=== PATIENT | male | born 1935 | race Caucasian/White ===

== ENCOUNTER 2016-12-17 11:19 | Day surgery (SDC) | payer MEDICARE, OTHER ==
[~2016-12-17 11:19] MED LIST: Acetaminophen TAB* 325 MG PO PRN; Buffered Lidocaine 0.9% SYRIN* 5 ML/SYR SYRINGE INTRADERM ONE
[2016-12-17] MEDS ORDERED: Cyclopentolate 1% OPTH.SOL* 2 ML BTL ONE (12:42)
[2016-12-17] MEDS ORDERED: Povidone Iodine 5% OPTH* 30 ML BTL ONE (12:42)
[2016-12-17] MEDS ORDERED: Lidocaine 1% MPF* 2 ML VIAL ONE (12:42)
[2016-12-17] MEDS ORDERED: Buffered Lidocaine 0.9% SYRIN* 5 ML/SYR SYRINGE ONE (12:42)
[2016-12-17] MEDS ORDERED: Phenylephrine 2.5% OPTH.SOL* 2 ML BTL ONE (12:42)
[2016-12-17] MEDS ORDERED: Neomycin/Polymy/Dex OPTH.SUSP* MAXITROL 0.1% 5 ML ONE (12:42)
[2016-12-17] MEDS ORDERED: Proparacaine 0.5% OPHTH.SOL* 15 ML BTL ONE (12:42)
[2016-12-17] MEDS ORDERED: acetaZOLAMIDE TAB* 250 MG ONE (12:42)
[2016-12-17] MEDS ORDERED: Ketorolac 0.5% OPHTH (NF) 0.5 % 5 ML BTL ONE (12:42)
[2016-12-17] MEDS ORDERED: Midazolam* 1 MG/ML 2 ML VIAL (2 MG) ONE (13:46)
[2016-12-17 15:02] VITALS: BP 139/71
--- NOTE | 2016-12-17 15:17 | OP ---
DATE OF OPERATION: 12/17/2016 - [facility] DATE OF : 1935. SURGEON: Yahir Balderas M.D. PREOPERATIVE DIAGNOSIS: Cataract right eye. POSTOPERATIVE DIAGNOSIS: Cataract right eye. OPERATIVE PROCEDURE: Phacoemulsification right eye with IOL. DESCRIPTION OF PROCEDURE: The patient was brought to the operating room after being given 1/2% Alcaine with epinephrine drops in the preoperative area. The eye was prepped and draped in the usual sterile fashion. Sterile drape and eyelid speculum were placed. Again, topical 1/2% Alcaine with epinephrine was given. A paracentesis incision was made at the 9 o'clock position with the No.75 blade. Clear cornea incision 2.2 x 2.2-mm was created at the 12 o'clock position starting at the anterior limbus using the 2.2-mm keratome. The anterior chamber was irrigated with 0.4 mL of 1% non-preservative intracameral lidocaine and filled with DisCoVisc. A capsulorrhexis was completed using the cystotome and the Utrata forceps. Hydrodissection was performed with balanced salt solution. The lens nucleus was removed with the Phacoemulsification handpiece without incident. Cortex was removed with the irrigation-aspiration handpiece. The capsular bag was re-inflated using DisCoVisc and an [id number] implant was inserted with the shooter. The irrigation-aspiration handpiece was used to remove all residual DisCoVisc. The eye was refilled with balanced salt solution and the wound checked and found to be watertight. Topical Maxitrol drops were given. [id number]/[facility] #: [id number] [facility]
== END 2016-12-17 14:59 | disposition home or self-care (01) ==
LOC: OREAST 11:19
PROVIDERS: ATTEND Specialist
DX: H25.811 Combined forms of age-related cataract, right eye (principal); H04.123 Dry eye syndrome of bilateral lacrimal glands; E11.65 Type 2 diabetes mellitus with hyperglycemia; I49.9 Cardiac arrhythmia, unspecified; N18.2 Chronic kidney disease, stage 2 (mild); Z87.891 Personal history of nicotine dependence
CPT/HCPCS: A9270-GY; J2250; V2632

== ENCOUNTER 2016-12-24 06:39 | Day surgery (SDC) | payer MEDICARE, OTHER ==
[2016-12-24] MEDS ORDERED: Midazolam* 1 MG/ML 2 ML VIAL (2 MG) ONE (07:36)
[2016-12-24] MEDS ORDERED: Povidone Iodine 5% OPTH* 30 ML BTL ONE (07:59)
[2016-12-24] MEDS ORDERED: Cyclopentolate 1% OPTH.SOL* 2 ML BTL ONE (07:59)
[2016-12-24] MEDS ORDERED: Neomycin/Polymy/Dex OPTH.SUSP* MAXITROL 0.1% 5 ML ONE (07:59)
[2016-12-24] MEDS ORDERED: Buffered Lidocaine 0.9% SYRIN* 5 ML/SYR SYRINGE ONE (07:59)
[2016-12-24] MEDS ORDERED: Lidocaine 1% MPF* 2 ML VIAL ONE (07:59)
[2016-12-24] MEDS ORDERED: Proparacaine 0.5% OPHTH.SOL* 15 ML BTL ONE (07:59)
[2016-12-24] MEDS ORDERED: Phenylephrine 2.5% OPTH.SOL* 2 ML BTL ONE (07:59)
[2016-12-24] MEDS ORDERED: acetaZOLAMIDE TAB* 250 MG ONE (07:59)
[2016-12-24] MEDS ORDERED: Ketorolac 0.5% OPHTH (NF) 0.5 % 5 ML BTL ONE (08:00)
[2016-12-24 08:41] VITALS: BP 141/73
--- NOTE | 2016-12-24 09:05 | OP ---
DATE OF OPERATION: 12/24/16 [facility] DATE OF : [birth year] SURGEON: Yahir Balderas M.D. PREOPERATIVE DIAGNOSIS: Cataract left eye. POSTOPERATIVE DIAGNOSIS: Cataract left eye. OPERATIVE PROCEDURE: Phacoemulsification left eye with intraocular lens implant. DESCRIPTION OF PROCEDURE: The patient was brought to the operating room after being given 1/2% Alcaine with epinephrine drops in the preoperative area. The eye was prepped and draped in the usual sterile fashion. Sterile drape and eyelid speculum were placed. Again, topical 1/2% Alcaine with epinephrine was given. A paracentesis incision was made at the 3 o'clock position with the No.75 blade. Clear cornea incision 2.2 x 2.2-mm was created at the 6 o'clock position starting at the anterior limbus using the 2.2-mm keratome. The anterior chamber was irrigated with 0.4 mL of 1% non-preservative intracameral lidocaine and filled with DisCoVisc. A capsulorrhexis was completed using the cystotome and the Utrata forceps. Hydrodissection was performed with balanced salt solution. The lens nucleus was removed with the Phacoemulsification handpiece without incident. Cortex was removed with the irrigation-aspiration handpiece. The capsular bag was re-inflated using DisCoVisc and an [id number] implant was inserted with the shooter. The irrigation-aspiration handpiece was used to remove all residual DisCoVisc. The eye was refilled with balanced salt solution and the wound checked and found to be watertight. Topical Maxitrol drops were given. [id number]/[facility] #: [id number] [facility]
== END 2016-12-24 09:07 | disposition home or self-care (01) ==
LOC: OREAST 06:39
PROVIDERS: ATTEND Specialist
DX: H25.812 Combined forms of age-related cataract, left eye (principal); I10 Essential (primary) hypertension; Z87.891 Personal history of nicotine dependence
CPT/HCPCS: A9270-GY; J2250; V2632

== ENCOUNTER 2019-04-27 06:11 | Emergency (ER) | payer MEDICARE, OTHER ==
[2019-04-27] MEDS ORDERED: Cyclobenzaprine TAB* 10 MG PO ONE ×2 (06:39→08:05)
[2019-04-27 08:15] VITALS: BP 182/117
--- NOTE | 2019-04-27 10:37 | ED ---
Back Pain - HPI Summary HPI Summary: This patient is an 83-year-old male who is otherwise healthy presenting to the ED after a fall 2 days ago. He states approximately 48 hours ago, he fell, over onto his right side and is endorsing pain over his right ribs. He states pain is worse with coughing and sneezing, better with rest. He's been taking Tylenol and ibuprofen with minimal relief. He states he feels the area is "spasming." He denies any pain directly over the spine or to the hips. Patient is able to flex and extend at the hips, rotator cuff hiccups. He believes he may have hit his head, however is not endorsing any headaches at this time. Currently not on blood thinners. Patient denies any headache, visual changes, neck pain, or loss, confusion. Denies any obvious erythema or bruising to the right ribs. Denies any abdominal pain. He states symptoms are worse with attempting to have a bowel movement and he states the area is painful when he is bearing down. Denies any urinary symptoms. 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 Onset/Duration: Sudden Onset Onset/Duration: Started Days Ago Timing: Constant Back Pain Location: Is Discrete @ - right ribs Severity Initially: Moderate Severity Currently: Moderate Pain Intensity: 0 Pain Scale Used: 0-10 Numeric Character: Aching Aggravating Symptom(s): Movement, Lifting, Bending Alleviating Symptom(s): Rest, Position Associated Signs And Symptoms: Negative: Swelling, Redness, Bruising, Weakness, Numbness, Bladder Incontinence, Bowel Incontinence - Risk Factors AAA Risk Factors: Negative TAD Risk Factors: Negative Cauda Equina Risk Factors: Negative Epidural Abscess Risk Factors: Negative - Allergies/Home Medications Allergies/Adverse Reactions: Allergies Allergy/AdvReac Type Severity Reaction Status Date / Time SEASONAL Allergy Congestion Uncoded 04/27/19 06:14 PMH/Surg Hx/FS Hx/Imm Hx Previously Healthy: Yes Endocrine/Hematology History: Reports: Hx Diabetes - TYPE II, listed in chart summary, diet controlled, no medication Musculoskeletal History: Reports: Hx Arthritis - osteo, generalized Sensory History: Reports: Hx Cataracts - having bi-lat surgery, Hx Contacts or Glasses - reading glasses Denies: Hx Hearing Aid - pt states he is "working on getting one" Opthamlomology History: Reports: Hx Cataracts - having bi-lat surgery, Hx Contacts or Glasses - reading glasses - Surgical History Surgery Procedure, Year, and Place: left hand index finger operation after injury 1966. teeth removal Hx Anesthesia Reactions: No - Immunization History Hx Pertussis Vaccination: No Immunizations Up to Date: Yes Infectious Disease History: No Infectious Disease History: Denies: Traveled Outside the [place] in Last 30 Days - Social History Occupation: Unemployed Lives: With Family Alcohol Use: Occasionally Alcohol Amount: 1 a month, 1-2 drinks Hx Substance Use: No Substance Use Type: Reports: None Hx Tobacco Use: Yes Smoking Status (MU): Former Smoker Type: Cigarettes, Pipe Amount Used/How Often: smoked for approx 50 yrs, 1 ppd or pkg of pipe tobacco Review of Systems Negative: Fever, Chills, Fatigue, Skin Diaphoresis Negative: Palpitations, Chest Pain Negative: Shortness Of Breath Genitourinary: Negative Positive: no symptoms reported, see HPI Positive: Arthralgia - right ribs. Negative: Myalgia Neurological: Negative All Other Systems Reviewed And Are Negative: Yes Physical Exam Triage Information Reviewed: Yes Vital Signs On Initial Exam: Initial Vitals Temp Pulse Resp BP Pulse Ox 99 F 131 16 199/123 95 04/27/19 06:13 04/27/19 06:13 04/27/19 06:13 04/27/19 06:13 04/27/19 06:13 Vital Signs Reviewed: Yes Appearance: Positive: Well-Appearing, Well-Nourished Skin: Positive: Warm, Skin Color Reflects Adequate Perfusion Head/Face: Positive: Normal Head/Face Inspection Eyes: Positive: EOMI, SEJAL, Conjunctiva Clear Neck: Positive: Supple, No Lymphadenopathy Respiratory/Lung Sounds: Positive: Clear to Auscultation, Breath Sounds Present Cardiovascular: Positive: Pulses are Symmetrical in both Upper and Lower Extremities Musculoskeletal: Positive: Pain @ - right ribs Neurological: Positive: Speech Normal Psychiatric: Positive: Affect/Mood Appropriate Procedures - Sedation Patient Received Moderate/Deep Sedation with Procedure: No Diagnostics - Vital Signs Vital Signs Temp Pulse Resp BP Pulse Ox 04/27/19 08:14 98 F 101 16 182/117 96 04/27/19 06:13 99 F 131 16 199/123 95 - Laboratory Lab Statement: Any lab studies that have been ordered have been reviewed, and results considered in the medical decision making process. Back Pain Course/Dx - Course Course Of Treatment: During this course of treatment, the patient's evaluated for right rib pain. He has no pain directly over the spine and no step-off noted. No abrasions or erythema or ecchymosis to the back or to the ribs. Patient is able to flex and extend at the hips, rotator cuff the hips. Patient is able to abduct and abduct both arms without discomfort. Pain is strictly over the right rib cage with light palpation. Symptoms are worse with coughing , sneezing and attempting to bear down having a bowel movement. He denies any urinary symptoms. He states he continues to eat and drink well. Lungs CTA, RRR. Right rib series with chest x-ray obtained which shows no obvious fracture. Upper pain management to the patient, however he declines. Prefers muscle relaxers. Given Flexeril 10 mg in the ED with minimal relief. This will be prescribed to him per patient request. I have encouraged him to continue Tylenol and ibuprofen. He will return to the ED if he develops any cough or congestion accompanied with fever. He will follow up with his PCP in 3 -5 days. - Diagnoses Differential Diagnosis/HQI/PQRI: Positive: Fracture, Herniated Disc, Osteoporosis, Strain, Sprain Provider Diagnoses: Contusion of rib on right side Discharge ED - Sign-Out/Discharge Documenting (check all that apply): Patient Departure - Discharge Plan Condition: Stable Disposition: HOME Prescriptions: Cyclobenzaprine TAB* [Flexeril TAB*] 10 mg PO TID #12 tab Patient Education Materials: Rib Contusion (ED) Referrals: Landon Banerjee MD [Primary Care Provider] - Additional Instructions: Please take flexeril up to three times daily only as needed for muscle pain Ibuprofen 600mg three times daily Tylenol 650mg three times daily Use these intermittently Moist heat to the area will help Use pillow when you cough or sneeze to help control the pain - Billing Disposition and Condition Condition: STABLE Disposition: Home
== END 2019-04-27 08:14 | disposition home or self-care (01) ==
LOC: ED 06:11
DX: S20.211A Contusion of right front wall of thorax, initial encounter (principal); W19.XXXA Unspecified fall, initial encounter; Y92.9 Unspecified place or not applicable; E11.9 Type 2 diabetes mellitus without complications; J45.909 Unspecified asthma, uncomplicated; Z87.891 Personal history of nicotine dependence
CPT/HCPCS: 99282; A9270-GY